=== PATIENT | female | born 1990 | race Caucasian/White ===

== ENCOUNTER 2022-11-22 14:58 | Observation (INO) | payer MEDICAID, SELFPAY ==
[2022-11-22] VITALS (8 sets, daily range): BP systolic 108–168; BP diastolic 70–94; PULSE 82–117; RESP 16–18; TEMP 36.6–36.9; O2SAT 96–100; BMI 51.5
--- NOTE | 2022-11-22 15:26 | US_ITS ---
WS: [id number] RIGHT UPPER QUADRANT ULTRASOUND HISTORY: ruq pain COMPARISON: None available. Liver: 19.2 cm in length. Moderate hepatomegaly and hepatic steatosis. No mass or bile duct dilatatio n. Portal Vein: Normal hepatopetal flow with monophasic waveform. Gallbladder: Normally distended gallbladder with no stones or wall thickening. CBD: 0.3 cm Pancreas: Portions of the head and tail are obscured. The body is negative. Right kidney: 10.4 cm in length. Normal size and echogenicity. No hydronephrosis or mass. Aorta and IVC: Unremarkable abdominal aorta and IVC. No ascites. IMPRESSION: 1. Normal gallbladder. No cholelithiasis. 2. Moderate hepatomegaly and hepatic steatosis.
[2022-11-22 15:28] LABS: Basophils % 0.3 %; Eosinophils % 0.6 %; Hematocrit 41.5 % (36-47); Lymphocytes # 1.4 10^3/uL (0.8-4.8); Lymphocytes % 18.7 %; Mean Corpuscular HGB Conc 33.3 g/dL (30-55); Mean Corpuscular Hemoglobin 28.3 pg (27-33); Mean Corpuscular Volume 85.2 fl (85-98); Mean Platelet Volume 9.9 fL (7.4-10.4); Monocytes # 0.6 10^3/uL (0.2-0.9); Monocytes % 7.6 %; Neutrophils # 5.23 10^3/uL (1.8-7.7); Neutrophils % 72.5 %; Nucleated Red Blood Cells % 0 %; Platelet Count 254 10^3/cmm (157-399); Red Blood Count 4.87 10^6/uL (3.85-5.65); Red Cell Distribution Width 12.7 % (12.1-15.1); White Blood Count 7.21 10^3/uL (3.29-11.43)
--- NOTE | 2022-11-22 15:28 | W.ED.ABDPA2 ---
HPI - Abdominal Pain General: Chief Complaint: Abdominal Pain Stated Complaint: Funmi sent for abd pain Time Seen by Provider: 11/22/22 15:12 Source: patient Mode of arrival: ambulatory Limitations: no limitations History of Present Illness: 32-year-old female states she has been having epigastric abdominal pain over the last 2 to 3 days. States been constant denies any worsening proving factors she had some nausea denies any vomiting. Denies any fevers. She denies any abdominal or gallbladder issues in the past. Associated Symptoms: Reports nausea; Denies chills, diarrhea, dysuria, fever(s) and vomiting Review of Systems Const: Denies: fever(s), chills, body aches or change in appetite ENMT: Denies: throat pain or dental pain Card: Denies: chest pain Resp: Denies: dyspnea GI: Reports: abdominal pain and nausea; Denies: vomiting or diarrhea : Denies: dysuria Musc: Denies: neck pain or back pain Skin/Breast: Denies: rash Neuro: Denies: headache(s) Physical Exam Const: COMMON NORMALS: no acute distress, patient oriented x3 and healthy appearing HENMT: COMMON NORMALS: normocephalic and atraumatic HEAD & SCALP: normocephalic and atraumatic Neck/C-Spine: COMMON NORMALS: full ROM and supple Chest: COMMONS NORMALS: normal inspection of the chest and normal palpation of entire chest wall Resp: COMMON NORMALS: normal respiratory effort, No retractions, No use of accessory muscles and clear to auscultation bilaterally AUSCULTATION: clear to auscultation bilaterally Cardio: COMMON NORMALS: regular rhythm and No murmurs present (Cardio) RATE: tachycardic RHYTHM: regular rhythm GI: COMMON NORMALS: Normal to inspection, nondistended, normoactive bowel sounds present, Soft to palpation and no masses PALPATION: Yes Soft to palpation OTHER: epigastric tenderness Extremity: COMMON NORMALS: normal to inspection and full ROM Neuro: COMMON NORMALS: patient oriented x3, moves all extremities and no focal motor deficits Psych: COMMON NORMALS: mental status grossly normal, Normal thought process present and cooperative THOUGHT PROCESS: Normal thought process present Skin: COMMON NORMALS: no rashes or lesions noted and no wounds GENERAL SKIN EXAM: no rashes or lesions noted Course Vital Signs: Vital signs: Vital Signs Temperature 98.2 F 11/22/22 15:03 Pulse Rate 100 11/22/22 16:08 Respiratory Rate 16 11/22/22 15:49 Blood Pressure 124/94 11/22/22 16:08 Pulse Oximetry 97 11/22/22 16:08 Oxygen Delivery Me thod Room Air 11/22/22 15:03 MDM - Abdominal Pain Medical Decision Making Patient presents here with abdominal pain epigastric in region lipase here is elevated consistent with pancreatitis ultrasound of her gallbladder showed no gallstones I spoke to the hospitalist will admit at this time. Medical Records I reviewed the patient's medical records. Lab Data I reviewed the patient's lab results. 11/22/22 15:21 11/22/22 15:21 Labs/Radiology: Laboratory Results WBC 7.21 10^3/uL (3.29-11.43) 11/22/22 15:21 RBC 4.87 10^6/uL (3.85-5.65) 11/22/22 15:21 Hgb 13.80 g/dL (11.27-16.99) 11/22/22 15:21 Hct 41.5 % (36-47) 11/22/22 15:21 MCV 85.2 fl (85-98) 11/22/22 15:21 MCH 28.3 pg (27-33) 11/22/22 15:21 MCHC 33.3 g/dL (30-55) 11/22/22 15:21 RDW 12.7 % (12.1-15.1) 11/22/22 15:21 Plt Count 254 10^3/cmm (157-399) 11/22/22 15:21 MPV 9.9 fL (7.4-10.4) 11/22/22 15:21 Neut % (Auto) 72.5 % 11/22/22 15:21 Lymph % (Auto) 18.7 % 11/22/22 15:21 [place] % (Auto) 7.6 % 11/22/22 15:21 Eos % (Auto) 0.6 % 11/22/22 15:21 Baso % (Auto) 0.3 % 11/22/22 15:21 Neut # (Auto) 5.23 10^3/uL (1.8-7.7) 11/22/22 15:21 Lymph # (Auto) 1.4 10^3/uL (0.8-4.8) 11/22/22 15:21 [place] # (Auto) 0.6 10^3/uL (0.2-0.9) 11/22/22 15:21 Eos # (Auto) 0.0 10^3/uL (0.0-0.8) 11/22/22 15:21 Baso # (Auto) 0.0 10^3/uL (0.0-0.1) 11/22/22 15:21 Nucleated RBC % (auto) 0 % 11/22/22 15:21 Nucleated RBCs # 0.0 /100WBC 11/22/22 15:21 Sodium 138 mmol/L (136-145) 11/22/22 15:21 Potassium 3.7 mmol/L (3.5-5.1) 11/22/22 15:21 Chloride 105 mmol/L (98-107) 11/22/22 15:21 Carbon Dioxide 24 mmol/L (22-29) 11/22/22 15:21 Anion Gap 12.7 (5-19) 11/22/22 15:21 BUN 9 mg/dL (6-20) 11/22/22 15:21 Creatinine 0.6 mg/dL (0.5-0.9) 11/22/22 15:21 GFR Calculation 115.9 mL/min (90-130) 11/22/22 15:21 Glucose 103 mg/dL (65-115) 11/22/22 15:21 Calculated Osmolality 285 mOsm/kg (285-295) 11/22/22 15:21 Calcium 8.9 mg/dL (8.5-10.5) 11/22/22 15:21 Total Bilirubin 1.0 mg/dL (0.15-1.2) 11/22/22 15:21 AST 16 U/L (0-32) 11/22/22 15:21 ALT 21 U/L (0-33) 11/22/22 15:21 Alkaline Phosphatase 88 U/L (35-105) 11/22/22 15:21 Total Protein 7.7 g/dL (6.6-8.7) 11/22/22 15:21 Albumin 4.7 g/dL (3.5-5.2) 11/22/22 15:21 Globulin 3.0 g/dL (1.3-4.6) 11/22/22 15:21 Triglycerides 160 mg/dL (0-150) H 11/22/22 15:21 Lipase 1062 U/L (13-60) H 11/22/22 15:21 HCG, Qual Negative (Negative) 11/22/22 15:21 Urine Color Yellow (Yellow) 11/22/22 15:50 Urine Appearance Clear (CLEAR) 11/22/22 15:50 Urine pH 5 (5-7) 11/22/22 15:50 Ur Specific [place] 1.015 (1.005-1.030) 11/22/22 15:50 Urine Protein Neg (Negative) 11/22/22 15:50 Urine Glucose (UA) Norm (Normal) 11/22/22 15:50 Urine Ketones Negative (Negative) 11/22/22 15:50 Urine Blood Neg (Negative) 11/22/22 15:50 Urine Nitrate Negative (Negative) 11/22/22 15:50 Urine Bilirubin Neg (Negative) 11/22/22 15:50 Urine Urobilinogen Norm mg/dL (Negative) 11/22/22 15:50 Ur Leukocyte Esterase Negative (Negative) 11/22/22 15:50 Discharge Plan Discharge Condition: Stable Prescriptions: No Action sertraline 100 mg tablet 200 mg PO DAILY buspirone 10 mg Tablet 0.5 - 1 mg PO BID Referrals: Wanda Choudhary FNP [Primary Care Provider] - Coding Level of Care Code ED [employer] for [facility]
[2022-11-22 15:42] LABS: HCG, Serum Qual Negative (Negative)
[2022-11-22] MEDS: ondansetron 2 mg/ML SDV 2 mL 4 MG IVP (15:48)
[2022-11-22] MEDS: morphine 4 mg/mL SDV 1 mL IVP (15:49)
[2022-11-22 15:53] LABS: Alanine Aminotransferase 21 U/L (0-33); Albumin Level 4.7 g/dL (3.5-5.2); Alkaline Phosphatase 88 U/L (35-105); Anion Gap 12.7 (5-19); Aspartate Amino Transferase 16 U/L (0-32); Blood Urea Nitrogen 9 mg/dL (6-20); Calcium 8.9 mg/dL (8.5-10.5); Carbon Dioxide 24 mmol/L (22-29); Chloride 105 mmol/L (98-107); Glomerular Filtration Rate 115.9 mL/min (90-130); Glucose 103 mg/dL (65-115); Osmolality Calculated 285 mOsm/kg (285-295); Potassium 3.7 mmol/L (3.5-5.1); Sodium 138 mmol/L (136-145); Total Protein 7.7 g/dL (6.6-8.7)
[2022-11-22 16:00] LABS: Lipase 1062 U/L (13-60)
[2022-11-22 16:02] LABS: Add Urine Microscopic? NO; Charge for UA Resulting for Rev
[2022-11-22 16:05] LABS: Bilirubin Urine Neg (Negative); Blood Urine Neg (Negative); Glucose Urine UA Norm (Normal); Ketones Urine Negative (Negative); Leukocyte Esterase Urine Negative (Negative); Nitrate Urine Negative (Negative); Protein Urine Neg (Negative); Specific Gravity, Urine 1.015 (1.005-1.030); Urine Appearance Clear (CLEAR); Urine Color Yellow (Yellow); Urobilinogen Urine Norm (Negative); pH Urine 5 (5-7)
[2022-11-22] MEDS: sodium chloride 0.9% 1,000 ML 999 ML IV (16:12)
[2022-11-22 16:28] LABS: Triglycerides 160 mg/dL (0-150)
[2022-11-22] MEDS: HYDROmorphone 1 mg/mL INJ 1 mL IVP (16:43)
--- NOTE | 2022-11-22 17:35 | P.HP_ITS ---
Providers/Chief Complaint Admitting Physician: Aure Fuhcs MD Primary Care Provider: MADHAVI Parekh Chief Complaint: Funmi sent for abd pain History of Present Illness Dillon Kent is a 32 year old female without significant known medical comorbidities who presented to the emergency room today with 2 days of worsening abdominal pain. Pain started on Monday evening (today is Monday), located in the mid epigastric region, 8-10 in intensity radiating into the left side of her belly and down the left flank. No dysuria. Patient had been drinking a lot of alcohol over the weekend, however unable to quantify for me exactly how much currently. Other than this weekend reports intermittent alcohol intake not a lot for history. No history of illicit drug use. She was found today to have an elevated lipase in excess of 1000, ultrasound ruled out any gallstones. Triglyceride level is 160. She has not recently started any new medications. Not a known diabetic. Has some nausea but has not vomited. Having normal bowel movements. No hematemesis or melena. Review of Systems General: Reports: 10 or more systems reviewed and unremarkable except in HPI and below Const: Denies: fever(s), chills or body aches Eyes: Denies: change in vision, blurry vision or photophobia ENMT: Reports: hoarseness; Denies: throat pain, enlarged tonsils, odynophagia or nasal congestion Card: Denies: chest pain, palpitations, irregular heart rhythm, edema, swelling of feet/ankles, lightheadedness, pre-syncope, dyspnea on exertion or orthopnea Resp: Denies: dyspnea, productive cough, non-productive cough, wheezing, stridor, pain on inspiration, change in phlegm color, hemoptysis or chest congestion GI: Denies: abdominal pain, nausea, vomiting, hematemesis, coffee ground emesis, dysphagia, heartburn, diarrhea, constipation, GI cramping, change in stool character, hematochezia or melena : Denies: flank pain, difficulty voiding, dysuria, urinary frequency, urinary urgency, urinary hesitancy or hematuria Musc: Denies: neck pain, back pain, extremity pain, joint swelling, joint warmth or deformity Neuro: Denies: headache(s), numbness in extremities, weakness in extremities, sensory changes, difficulty walking, frequent falls, dizziness, vertigo, behavioral changes, Slurred speech present or seizure-like activity Psych: Denies: anxiety, depression, suicidal ideation or homicidal ideation Endo: Denies: polyuria, polydipsia, tired all the time, cold intolerance or hot flashes [place]/Lymph: Denies: easy bruising or easy bleeding Medications/Allergies Home Medications Medication Instructions Recorded Confirmed Last Taken Type buspirone 10 mg tablet 5 - 10 mg PO BID 11/22/22 11/22/22 11/22/22 History sertraline 100 mg tablet 200 mg PO DAILY 11/22/22 11/22/22 11/22/22 History Allergies Allergy/AdvReac Type Severity Reaction Status Date / Time No Known Allergies Allergy Verified 11/22/22 15:03 Vitals/I&O/Wt Last Vital Signs Temp 98.2 F 11/22/22 15:03 Pulse 96 11/22/22 16:30 Resp 18 11/22/22 16:43 BP 142/78 11/22/22 16:30 Pulse Ox 100 11/22/22 16:43 O2 Del Method Room Air 11/22/22 15:03 Weight last 48 hrs Weight 140.614 kg Physical Exam Narrative: General: No acute distress, AO x3 HEENT: PERRLA, pupils bilaterally equal and reactive, pallors not present Chest: Normal vesicular breath sounds, no added sounds, equal good air entry bilaterally CVS: S1-S2 regular, no murmurs, no tachycardia, no gallops, no rubs Abdomen: Soft, nontender, no organomegaly, bowel sounds present Neuro: No focal deficits, no facial deformity, AO x3, power 5/5 in all limbs Data 11/22/22 15:21 11/22/22 15:21 Other data: Laboratory Results WBC 7.21 10^3/uL (3.29-11.43) 11/22/22 15: RBC 4.87 10^6/uL (3.85-5.65) 11/22/22 15:21 Hgb 13.80 g/dL (11.27-16.99) 11/22/22 15:21 Hct 41.5 % (36-47) 11/22/22 15:21 MCV 85.2 fl (85-98) 11/22/22 15:21 MCH 28.3 pg (27-33) 11/22/22 15:21 MCHC 33.3 g/dL (30-55) 11/22/22 15:21 RDW 12.7 % (12.1-15.1) 11/22/22 15:21 Plt Count 254 10^3/cmm (157-399) 11/22/22 15:21 MPV 9.9 fL (7.4-10.4) 11/22/22 15:21 Neut % (Auto) 72.5 % 11/22/22 15:21 Lymph % (Auto) 18.7 % 11/22/22 15:21 [place] % (Auto) 7.6 % 11/22/22 15:21 Eos % (Auto) 0.6 % 11/22/22 15:21 Baso % (Auto) 0.3 % 11/22/22 15:21 Neut # (Auto) 5.23 10^3/uL (1.8-7.7) 11/22/22 15:21 Lymph # (Auto) 1.4 10^3/uL (0.8-4.8) 11/22/22 15:21 [place] # (Auto) 0.6 10^3/uL (0.2-0.9) 11/22/22 15:21 Eos # (Auto) 0.0 10^3/uL (0.0-0.8) 11/22/22 15:21 Baso # (Auto) 0.0 10^3/uL (0.0-0.1) 11/22/22 15:21 Nucleated RBC % (auto) 0 % 11/22/22 15:21 Nucleated RBCs # 0.0 /100WBC 11/22/22 15:21 Sodium 138 mmol/L (136-145) 11/22/22 15:21 Potassium 3.7 mmol/L (3.5-5.1) 11/22/22 15:21 Chloride 105 mmol/L (98-107) 11/22/22 15:21 Carbon Dioxide 24 mmol/L (22-29) 11/22/22 15:21 Anion Gap 12.7 (5-19) 11/22/22 15:21 BUN 9 mg/dL (6-20) 11/22/22 15:21 Creatinine 0.6 mg/dL (0.5-0.9) 11/22/22 15:21 GFR Calculation 115.9 mL/min (90-130) 11/22/22 15:21 Glucose 103 mg/dL (65-115) 11/22/22 15:21 Calculated Osmolality 285 mOsm/kg (285-295) 11/22/22 15:21 Calcium 8.9 mg/dL (8.5-10.5) 11/22/22 15:21 Total Bilirubin 1.0 mg/dL (0.15-1.2) 11/22/22 15:21 AST 16 U/L (0-32) 11/22/22 15:21 ALT 21 U/L (0-33) 11/22/22 15:21 Alkaline Phosphatase 88 U/L (35-105) 11/22/22 15:21 Total Protein 7.7 g/dL (6.6-8.7) 11/22/22 15:21 Albumin 4.7 g/dL (3.5-5.2) 11/22/22 15:21 Globulin 3.0 g/dL (1.3-4.6) 11/22/22 15:21 Triglycerides 160 mg/dL (0-150) H 11/22/22 15:21 Lipase 1062 U/L (13-60) H 11/22/22 15:21 HCG, Qual Negative (Negative) 11/22/22 15:21 Urine Color Yellow (Yellow) 11/22/22 15:50 Urine Appearance Clear (CLEAR) 11/22/22 15:50 Urine pH 5 (5-7) 11/22/22 15:50 Ur Specific [place] 1.015 (1.005-1.030) 11/22/22 15:50 Urine Protein Neg (Negative) 11/22/22 15:50 Urine Glucose (UA) Norm (Normal) 11/22/22 15:50 Urine Ketones Negative (Negative) 11/22/22 15:50 Urine Blood Neg (Negative) 11/22/22 15:50 Urine Nitrate Negative (Negative) 11/22/22 15:50 Urine Bilirubin Neg (Negative) 11/22/22 15:50 Urine Urobilinogen Norm mg/dL (Negative) 11/22/22 15:50 Ur Leukocyte Esterase Negative (Negative) 11/22/22 15:50 Urine Opiates Screen Negative ng/mL (Negative) 11/22/22 15:50 Ur Barbiturates Screen Negative ng/mL (Negative) 11/22/22 15:50 Ur Phencyclidine Scrn Negative ng/mL (Negative) 11/22/22 15:50 Ur Amphetamines Screen Negative ng/mL (Negative) 11/22/22 15:50 U Benzodiazepines Scrn Negative ng/mL (Negative) 11/22/22 15:50 Urine Cocaine Screen Negative ng/mL (Negative) 11/22/22 15:50 U Marijuana (THC) Screen Negative ng/mL (Negative) 11/22/22 15:50 Ethyl Alcohol < 10 mg/dL (0-10) 11/22/22 15:20 A&P Assessment and plan (1) Acute pancreatitis: Based on elevated lipase, location of pain in the epigastric area radiating into left side, and clinical chain of events after binge alcohol drinking Admit to MedSurg IV fluid with normal saline at 125 cc an hour N.p.o. for bowel rest Pain control with as needed morphine alternating with IV Toradol. As needed Tylenol for pain and fever. As needed Zofran for nausea management. CT of the abdomen and pelvis with contrast Suspect acute pancreatitis to be alcohol induced Alternate differential for her current presentation include gastritis induced by alcohol. If CT is normal, will plan to add Carafate. In the interim Protonix 40 mg IV daily has been ordered. Attestations Medical Necessity Statement*: Anticipate greater than 2 midnight admission for acute pancreatitis. Coding Level of Care Code Acute Code for [facility] Diagnoses Acute pancreatitis K85.90
[2022-11-22 17:41] LABS: Amphetamines Screen Urine Negative (Negative); Barbiturates Screen Urine Negative (Negative); Benzodiazepines Screen Urine Negative (Negative); Cocaine Screen Urine Negative (Negative); Opiate Screen Urine Negative (Negative); PCP Screen Urine Negative (Negative); THC Screen Urine Negative (Negative)
[2022-11-22 17:47] LABS: Alcohol Level < 10 mg/dL (0-10)
--- NOTE | 2022-11-22 18:04 | CTR_ITS ---
PROCEDURE INFORMATION: Exam: CT Abdomen With Contrast Exam date and time: 11/22/2022 7:57 PM Age: 32 years old Clinical indication: Abdominal pain; Localized; Upper; Patient HX: Past surgery: C section; Additional info: Evaluate for pancreatitis TECHNIQUE: Imaging protocol: Computed tomography of the abdomen with contrast. Radiation optimization: All CT scans at this facility use at least one of these dose optimization techniques: automated exposure control; mA and/or kV adjustment per patient size (includes targeted exams where dose is matched to clinical indication); or iterative reconstruction. Contrast material: OMNI 350; Contrast volume: 100 ml; Contrast route: INTRAVENOUS (IV); REPORTING DATA: Count of CT and Cardiac NM exams in prior 12 months: This patient has received 0 known CTs and 0 known cardiac nuclear medicine studies in the 12 months prior to the current study. COMPARISON: US abdomen complete* [id number] 11/22/2022 3:47 PM RADIATION DOSE METRICS: Total DLP (mGy-cm): 989.62 FINDINGS: Liver: Hepatic steatosis. Gallbladder and bile ducts: Normal. No calcified stones. No ductal dilation. Pancreas: Edema about the pancreatic body and tail, please correlate for pancreatitis. 3 cm cystic lesion in the mid pancreas. Spleen: Normal. No splenomegaly. Adrenal glands: Normal. No mass. Kidneys and ureters: Right kidney punctate nonobstructing calyceal stone. Stomach and bowel: Visualized stomach and bowel are unremarkable. No obstruction. No mucosal thickening. Intraperitoneal space: Unremarkable. No free air. No significant fluid collection. Vasculature: Unremarkable. No abdominal aortic aneurysm. Lymph nodes: Unremarkable. No enlarged lymph nodes. Bones/joints: Unremarkable. No acute fracture. No dislocation. Soft tissues: Unremarkable. CT/CT abdomen w con* [id number] IMPRESSION: 1. Edema about the pancreatic body and tail, please correlate for pancreatitis. 2. Hepatic steatosis. 3. 3 cm cystic lesion in the mid pancreas. Reimaging every 6 months for 2 years is recommended. (Reference: Pranay, 2017) 4. Right kidney punctate nonobstructing calyceal stone. REFERENCES: Pranay CAMPA et al. Management of Incidental Pancreatic Cysts: A White Paper of the ACR Incidental Findings Committee. J Am Monika Radiol. 2017;14(7):911-923.
[2022-11-22] MEDS: dextrose 5%-sod chloride 0.9% 1,000 ML 125 ML IV (18:51)
[2022-11-22] MEDS: pantoprazole 40 mg SDV IVP (18:52)
[2022-11-22] MEDS: ketorolac 30 mg/mL INJ 15 MG IVP (18:52)
[2022-11-22] MEDS: enoxaparin 40 mg/0.4 mL Syringe SUBCUT (18:56)
[2022-11-22] MEDS: iohexol 350 mg/mL 500 mL Btl (per mL) 100 ML IV (20:03)
[2022-11-23] VITALS (7 sets, daily range): BP systolic 106–166; BP diastolic 68–81; PULSE 71–81; RESP 15–18; TEMP 36.8–37; O2SAT 92–98
[2022-11-23] MEDS: morphine 4 mg/mL SDV 1 mL 2 MG IVP (00:02)
[2022-11-23] MEDS: dextrose 5%-sod chloride 0.9% 1,000 ML 125 ML IV ×3 (03:38→22:53)
[2022-11-23] MEDS: ketorolac 30 mg/mL INJ 15 MG IVP ×2 (03:42→11:06)
[2022-11-23 05:30] LABS: Basophils % 0.4 %; Eosinophils # 0.1 10^3/uL (0.0-0.8); Eosinophils % 1.4 %; Hematocrit 35.3 % (36-47); Lymphocytes # 1.2 10^3/uL (0.8-4.8); Lymphocytes % 24.6 %; Mean Corpuscular HGB Conc 32.6 g/dL (30-55); Mean Corpuscular Hemoglobin 28.5 pg (27-33); Mean Corpuscular Volume 87.6 fl (85-98); Mean Platelet Volume 10.2 fL (7.4-10.4); Monocytes # 0.6 10^3/uL (0.2-0.9); Monocytes % 12.5 %; Neutrophils # 3.07 10^3/uL (1.8-7.7); Neutrophils % 60.7 %; Nucleated Red Blood Cells % 0 %; Platelet Count 205 10^3/cmm (157-399); Red Blood Count 4.03 10^6/uL (3.85-5.65); White Blood Count 5.05 10^3/uL (3.29-11.43)
[2022-11-23 06:01] LABS: Alanine Aminotransferase 17 U/L (0-33); Albumin Level 3.6 g/dL (3.5-5.2); Alkaline Phosphatase 70 U/L (35-105); Anion Gap 12.8 (5-19); Aspartate Amino Transferase 13 U/L (0-32); Blood Urea Nitrogen 9 mg/dL (6-20); Carbon Dioxide 21 mmol/L (22-29); Chloride 110 mmol/L (98-107); Globulin 2.6 g/dL (1.3-4.6); Glucose 103 mg/dL (65-115); Magnesium 1.9 mg/dL (1.7-2.3); Osmolality Calculated 289 mOsm/kg (285-295); Potassium 3.8 mmol/L (3.5-5.1); Sodium 140 mmol/L (136-145); Total Bilirubin 0.7 mg/dL (0.15-1.2); Total Protein 6.2 g/dL (6.6-8.7)
[2022-11-23] MEDS: sertraline 100 mg Tablet 200 MG PO (08:11)
--- NOTE | 2022-11-23 14:56 | PM.PN ---
Subjective Subjective: Patient reports that pain is better. She is able to tolerate a clear liquid diet. No nausea. She had a bowel movement. Passing flatus. CT confirmed pancreatitis Medications: Reviewed: Yes Vitals/I&O/Wt Last Vital Signs Temp 98.4 F 11/23/22 12:00 Pulse 78 11/23/22 12:00 Resp 16 11/23/22 12:00 BP 142/73 11/23/22 12:00 Pulse Ox 92 11/23/22 12:00 O2 Del Method Room Air 11/23/22 07:42 11/22/22 11/23/22 11/23/22 22:59 06:59 14:59 Intake Total 1000 / 1000 1000 / 2000 1360 / 1360 Output Total 250 / 250 Balance 1000 / 1000 750 / 1750 1360 / 1360 Weight last 48 hrs Weight 140.614 kg Physical Exam Narrative: General: No acute distress, AO x3 HEENT: PERRLA, pupils bilaterally equal and reactive, pallors not present Chest: Normal vesicular breath sounds, no added sounds, equal good air entry bilaterally CVS: S1-S2 regular, no murmurs, no tachycardia, no gallops, no rubs Abdomen: Soft, nontender, no organomegaly, bowel sounds present Neuro: No focal deficits, no facial deformity, AO x3, power 5/5 in all limbs Data 11/23/22 04:43 11/23/22 04:43 Other data: CT/CT abdomen w con* [id number] IMPRESSION: 1. ? Edema about the pancreatic body and tail, please correlate for pancreatitis. 2. ? Hepatic steatosis. 3. ? 3 cm cystic lesion in the mid pancreas. Reimaging every 6 months for 2 years is recommended. (Reference: Pranay, 2017) 4. ? Right kidney punctate nonobstructing calyceal stone. A&P Assessment and plan (1) Acute pancreatitis: Based on elevated lipase, CT findings of pancreatitis Continue normal saline at 125 cc an hour Advance diet to mechanical soft, bland for food Pain control with as needed morphine alternating with IV Toradol. Currently states pain is well controlled As needed Tylenol for pain and fever. As needed Zofran for nausea management. CT of the abdomen and pelvis with contrast showing evidence of pancreatitis with a 3 cm cystic lesion in the mid pancreas which will need serial radiological monitoring. Suspect acute pancreatitis to be alcohol induced Continue Protonix 40 mg IV daily has been ordered. Triglyceride level is within range at 160 Attestations Medical Necessity Statement*: Advance diet today, monitor for tolerability. If continues to do well next 24 hours anticipate discharge. Coding Level of Care Code Acute Code for Chg Fwd Moderate MDM includes number and complexity of problems actively addressed during encounter, amount and/or complexity of data reviewed/ordered and described risk of complication, morbidity or mortality of management as documented Diagnoses Acute pancreatitis K85.90
[2022-11-23] MEDS: acetaminophen 500 mg Tablet PO (15:19)
[2022-11-23] MEDS: pantoprazole 40 mg SDV IVP (17:38)
[2022-11-23] MEDS: enoxaparin 40 mg/0.4 mL Syringe SUBCUT (17:38)
[2022-11-24] VITALS: BP 119/75; PULSE 78; RESP 18; TEMP 36.8; O2SAT 99
[2022-11-24] MEDS: ketorolac 30 mg/mL INJ 15 MG IVP (01:40)
[2022-11-24 03:54] VITALS: BP 116/69; PULSE 81; RESP 17; TEMP 36.8; O2SAT 98
[2022-11-24 05:08] LABS: Basophils % 0.5 %; Eosinophils # 0.1 10^3/uL (0.0-0.8); Eosinophils % 1.7 %; Hematocrit 32.9 % (36-47); Lymphocytes # 1.4 10^3/uL (0.8-4.8); Mean Corpuscular HGB Conc 32.5 g/dL (30-55); Mean Corpuscular Hemoglobin 28.5 pg (27-33); Mean Corpuscular Volume 87.7 fl (85-98); Mean Platelet Volume 10.2 fL (7.4-10.4); Monocytes # 0.5 10^3/uL (0.2-0.9); Neutrophils # 2.22 10^3/uL (1.8-7.7); Neutrophils % 52.3 %; Nucleated Red Blood Cells % 0 %; Platelet Count 203 10^3/cmm (157-399); Red Blood Count 3.75 10^6/uL (3.85-5.65); Red Cell Distribution Width 12.7 % (12.1-15.1); White Blood Count 4.24 10^3/uL (3.29-11.43)
[2022-11-24 05:42] LABS: Alanine Aminotransferase 18 U/L (0-33); Albumin Level 3.7 g/dL (3.5-5.2); Alkaline Phosphatase 63 U/L (35-105); Aspartate Amino Transferase 15 U/L (0-32); Blood Urea Nitrogen 8 mg/dL (6-20); Calcium 8.1 mg/dL (8.5-10.5); Carbon Dioxide 22 mmol/L (22-29); Chloride 110 mmol/L (98-107); Globulin 1.9 g/dL (1.3-4.6); Glucose 112 mg/dL (65-115); Osmolality Calculated 289 mOsm/kg (285-295); Sodium 140 mmol/L (136-145); Total Bilirubin 0.4 mg/dL (0.15-1.2); Total Protein 5.6 g/dL (6.6-8.7)
[2022-11-24 05:44] LABS: Anion Gap 11.8 (5-19); Potassium 3.8 mmol/L (3.5-5.1)
[2022-11-24] MEDS: dextrose 5%-sod chloride 0.9% 1,000 ML 125 ML IV (07:11)
[2022-11-24 08:00] VITALS: BP 155/77; PULSE 72; RESP 16; TEMP 36.8; O2SAT 98
[2022-11-24] MEDS: sertraline 100 mg Tablet 200 MG PO (08:22)
--- NOTE | 2022-11-24 10:17 | PC.CHAP ---
Pastoral Care Encounter/Spiritual Assessment Type of Contact [] Declined chemical dependency counselor visit [] Patient/Family/Request visit [] Outpatient visit [] Follow-up visit [] Physician referral [] Code/Alert [x] Routine visit [] Staff referral [] Actively dying [] Patient sleeping [] Family support [] [] Out of room [] Palliative care [] [x] Receiving care in room [] Pre-surgical visit [] Trauma [] Long length of stay [] ICU visit [] Other: Relational/Emotional Strength [x] Patient feels connected with others/family/visitors/staff [] Distress [] Loneliness/isolation [] Abandonment Spirituality of Patient [x] Person of Soraya [] Attends Episcopal of their [place] [c] Believes in Prayer [] Reads Bible or Catholic materials [] There are Spiritual issues to be addressed Physician Advisor Interventions [x] Prayer [x] Active listening [x] Non-anxious presence [X] Spiritual/emotional support [] Crisis/trauma care [X] Spiritual counseling [] Bereavement support [] Provided bereavement packet [] Provided Bible/devotional materials [] Provided toy/stuffed animal, coloring book to patient or family member [] Provided Communion [] Anointing/Mobile [] Salvation [X] Completed spiritual assessment [] Other: Impact on Illness or Injury [] Angry [] Fearful [] Anxious [] Often cries [] Exhaustion [] Unable to work [] Unable to attend jain [] Unable to walk/stand [] Unable to read [] Unable to drive [] Unable to eat/drink [] Unable to sleep [] Unable to be with family [] Patient intubated [] Other: Summary Stomic not suer had tests waiting doctor to see what needs to has a postive attitude well be able to go home Time spent with patient 10 mins
[2022-11-24 11:43] VITALS: BP 127/77; PULSE 67; RESP 16; TEMP 36.8; O2SAT 98
--- NOTE | 2022-11-24 12:28 | PM.DCS ---
Discharge Providers Date of Admission: 11/22/22 17:15 Date of Discharge: November 24, 2022 Attending Provider at Admission: Aure Fuchs MD Attending Provider at Discharge: Aure Fuchs MD Primary Care Provider: MADHAVI Parekh Diagnoses at Discharge Discharge Diagnosis (1) Acute pancreatitis: Status: Acute Reason for Visit Reason for Visit: Funmi sent for abd pain Hospital Course Hospital Course Dillon Kent is a 32 year old female without significant known medical comorbidities who presented to the emergency room today with 2 days of worsening abdominal pain.? Pain started on Monday evening (today is Monday), located in the mid epigastric region, 8-10 in intensity radiating into the left side of her belly and down the left flank.? No dysuria.?She was found to have acute pancreatitis on CT imaging and had elevated lipase. Likely precipitated by binge drinking alcohol. Counselled to cut back on alcohol intake. Triglycerides were within range. Liver and biliary system normal, unlikely gallstone induced etiology. She was treated conservatively with Iv fluids, pain control, nausea management. Diet was advanced from clear liquid to mechanical soft bland. Incidentally noted 3 cm cyst in middle of pancreatic body which may be related to pancreatitis and acute inflammation vs pre existing pancreatic cyst. Recommended reimaging in 4-6 months to follow up on interval progression. Physical Exam Narrative: General: No acute distress, AO x3 HEENT: PERRLA, pupils bilaterally equal and reactive, pallors not present Chest: Normal vesicular breath sounds, no added sounds, equal good air entry bilaterally CVS: S1-S2 regular, no murmurs, no tachycardia, no gallops, no rubs Abdomen: Soft, nontender, no organomegaly, bowel sounds present Neuro: No focal deficits, no facial deformity, AO x3, power 5/5 in all limbs Discharge Data Studies Completed and Pending Completed Studies During Hospitalization Category Date Time Status CT abdomen w con* [id number] Routine Cat Scan 11/22/22 18:04 Completed US abdomen complete* [id number] Stat Ultrasound 11/22/22 15:26 Completed Radiology Impressions Abdomen CT 11/22/22 18:04 IMPRESSION: 1. Edema about the pancreatic body and tail, please correlate for pancreatitis. 2. Hepatic steatosis. 3. 3 cm cystic lesion in the mid pancreas. Reimaging every 6 months for 2 years is recommended. (Reference: Pranay, 2017) 4. Right kidney punctate nonobstructing calyceal stone. REFERENCES: Pranay CAMPA, et al. Management of Incidental Pancreatic Cysts: A White Paper of the ACR Incidental Findings Committee. J Am Monika Radiol. 2017;14(7):911-923. Laboratory Results WBC 4.24 10^3/uL (3.29-11.43) 11/24/22 04:44 RBC 3.75 10^6/uL (3.85-5.65) L 11/24/22 04:44 Hgb 10.70 g/dL (11.27-16.99) L 11/24/22 04:44 Hct 32.9 % (36-47) L 11/24/22 04:44 MCV 87.7 fl (85-98) 11/24/22 04:44 MCH 28.5 pg (27-33) 11/24/22 04:44 MCHC 32.5 g/dL (30-55) 11/24/22 04:44 RDW 12.7 % (12.1-15.1) 11/24/22 04:44 Plt Count 203 10^3/cmm (157-399) 11/24/22 04:44 MPV 10.2 fL (7.4-10.4) 11/24/22 04:44 Neut % (Auto) 52.3 % 11/24/22 04:44 Lymph % (Auto) 33.0 % 11/24/22 04:44 Citrus % (Auto) 12.0 % 11/24/22 04:44 Eos % (Auto) 1.7 % 11/24/22 04:44 Baso % (Auto) 0.5 % 11/24/22 04:44 Neut # (Auto) 2.22 10^3/uL (1.8-7.7) 11/24/22 04:44 Lymph # (Auto) 1.4 10^3/uL (0.8-4.8) 11/24/22 04:44 Citrus # (Auto) 0.5 10^3/uL (0.2-0.9) 11/24/22 04:44 Eos # (Auto) 0.1 10^3/uL (0.0-0.8) 11/24/22 04:44 Baso # (Auto) 0.0 10^3/uL (0.0-0.1) 11/24/22 04:44 Nucleated RBC % (auto) 0 % 11/24/22 04:44 Nucleated RBCs # 0.0 /100WBC 11/24/22 04:44 Sodium 140 mmol/L (136-145) 11/24/22 04:44 Potassium 3.8 mmol/L (3.5-5.1) 11/24/22 04:44 Chloride 110 mmol/L (98-107) H 11/24/22 04:44 Carbon Dioxide 22 mmol/L (22-29) 11/24/22 04:44 Anion Gap 11.8 (5-19) 11/24/22 04:44 BUN 8 mg/dL (6-20) 11/24/22 04:44 Creatinine 0.5 mg/dL (0.5-0.9) 11/24/22 04:44 GFR Calculation 143.0 mL/min (90-130) H 11/24/22 04:44 Glucose 112 mg/dL (65-115) 11/24/22 04:44 Calculated Osmolality 289 mOsm/kg (285-295) 11/24/22 04:44 Calcium 8.1 mg/dL (8.5-10.5) L 11/24/22 04:44 Magnesium 1.9 mg/dL (1.7-2.3) 11/23/22 04:43 Total Bilirubin 0.4 mg/dL (0.15-1.2) 11/24/22 04:44 AST 15 U/L (0-32) 11/24/22 04:44 ALT 18 U/L (0-33) 11/24/22 04:44 Alkaline Phosphatase 63 U/L (35-105) 11/24/22 04:44 Total Protein 5.6 g/dL (6.6-8.7) L 11/24/22 04:44 Albumin 3.7 g/dL (3.5-5.2) 11/24/22 04:44 Globulin 1.9 g/dL (1.3-4.6) 11/24/22 04:44 Triglycerides 160 mg/dL (0-150) H 11/22/22 15:21 Lipase 1062 U/L (13-60) H 11/22/22 15:21 TSH 2.60 uIU/mL (0.27-4.20) 11/23/22 04:43 HCG, Qual Negative (Negative) 11/22/22 15:21 Urine Color Yellow (Yellow) 11/22/22 15:50 Urine Appearance Clear (CLEAR) 11/22/22 15:50 Urine pH 5 (5-7) 11/22/22 15:50 Ur Specific [place] 1.015 (1.005-1.030) 11/22/22 15:50 Urine Protein Neg (Negative) 11/22/22 15:50 Urine Glucose (UA) Norm (Normal) 11/22/22 15:50 Urine Ketones Negative (Negative) 11/22/22 15:50 Urine Blood Neg (Negative) 11/22/22 15:50 Urine Nitrate Negative (Negative) 11/22/22 15:50 Urine Bilirubin Neg (Negative) 11/22/22 15:50 Urine Urobilinogen Norm mg/dL (Negative) 11/22/22 15:50 Ur Leukocyte Esterase Negative (Negative) 11/22/22 15:50 Urine Opiates Screen Negative ng/mL (Negative) 11/22/22 15:50 Ur Barbiturates Screen Negative ng/mL (Negative) 11/22/22 15:50 Ur Phencyclidine Scrn Negative ng/mL (Negative) 11/22/22 15:50 Ur Amphetamines Screen Negative ng/mL (Negative) 11/22/22 15:50 U Benzodiazepines Scrn Negative ng/mL (Negative) 11/22/22 15:50 Urine Cocaine Screen Negative ng/mL (Negative) 11/22/22 15:50 U Marijuana (THC) Screen Negative ng/mL (Negative) 11/22/22 15:50 Ethyl Alcohol < 10 mg/dL (0-10) 11/22/22 15:20 Vitals Last Vital Signs Temp 98.3 F 11/24/22 11:43 Pulse 67 11/24/22 11:43 Resp 16 11/24/22 11:43 BP 127/77 11/24/22 11:43 Pulse Ox 98 11/24/22 11:43 O2 Del Method Room Air 11/24/22 03:54 Discharge Plan Discharge Patient Disposition: Home Condition: Stable Prescriptions: New tramadol 50 mg tablet 50 mg PO TID PRN (Reason: pain) 7 Days Qty: 20 0RF Continued sertraline 100 mg tablet 200 mg PO DAILY buspirone 10 mg Tablet 5 - 10 mg PO BID sertraline 100 mg tablet 100 mg PO DAILY Discharge Orders: Discharge Order (Routine); Ordered 11/24/22 Ordered By: Aure Fuchs Referrals: Wanda Choudhary FNP [Primary Care Provider] - 12/08/22 1:30 pm Discharge Diet: Advance as tolerated Discharge Activity: Resume usual activity Patient Instructions: Alcohol Intoxication, Tramadol (By mouth), Pancreatitis (ED), Abuse of Alcohol (ED), Opioid Safety Activity Restrictions/Additional Instructions: please follow up with your PCP for repeat Ct of the abdomen in 6 months time to evaluate any change in pancreatic cyst Discharge Attestations Time Spent in Discharge Care*: greater than 30 min Quality Metrics Clinical Quality Measures [ No reported AMI, CVA or VTE this stay] Coding Level of Care Code Acute Code for Chg Fwd Diagnoses Acute pancreatitis K85.90
[2022-11-24 12:59] VITALS: BP 127/77; PULSE 67; RESP 16; TEMP 36.8; O2SAT 98
== END 2022-11-24 12:40 | disposition home or self-care (01) ==
LOC: ER 16:31 → MEDSURG 11-24 12:23
PROVIDERS: Admitting Provider Student in an Organized Health Care Education/Training Program; Emergency Provider Emergency Medicine; PCP Nurse Practitioner Family; Visit Provider Student in an Organized Health Care Education/Training Program
DX: K85.90 Acute pancreatitis without necrosis or infection, unspecified (principal); K76.0 Fatty (change of) liver, not elsewhere classified; R16.0 Hepatomegaly, not elsewhere classified
CPT/HCPCS: 36415; 74160; 76700; 76705; 80053; 80306; 80307; 81003; 83690; 83735; 84443; 84478; 84703; 85025; 96361; 96372; 96374; 96375; 96376; 99285; C9113; G0378; J1170; J1650; J1885; J2270; J2405; J7030; J7042; Q9967